=== PATIENT | female | born 1985 | race Caucasian/White ===

== ENCOUNTER 2016-05-17 15:28 | Emergency (ER) | payer MEDICAID ==
[~2016-05-17] VITALS: Wt 52.7 kg
[2016-05-17] MEDS ORDERED: ACETAMINOPHEN/CODEINE #3 TAB PO ONE (17:30)
[2016-05-17] MEDS ORDERED: IBUPROFEN 200 MG TAB PO ONE (17:30)
--- NOTE | 2016-05-17 18:02 | RADRPT ---
PROCEDURE: Chest Radiograph. CLINICAL INDICATION: Chest pain TECHNIQUE: Single frontal chest radiograph. COMPARISON: None available FINDINGS: The cardiomediastinal silhouette is within normal limits. There is a vague area of increased densit y in the right upper lung zone which may represent focal infiltrate or artifact . The lungs are oth erwise clear. No lobar infiltrate is identified. There is no pleural effusion. The bones are in tact. IMPRESSION: 1. Vague area of increased density in the right upper lung zone is nonspecific and may represent fo camille infiltrate. Recommend follow-up to resolution versus CT chest as clinically indicated. 2. Otherwise unremarkable chest radiograph. RPTAT: [facility] .Castro Rivera MD, MD Date Time Electronically viewed and signed by .Castro Rivera MD, on 05/17/2016 18:02 .B/
[2016-05-17] MEDS ORDERED: ACET1TAB40 PO (18:06)
[2016-05-17] MEDS ORDERED: AZIT250T94 PO (18:06)
[2016-05-17] MEDS ORDERED: AMOX1TAB10 PO (18:06)
[2016-05-17] MEDS ORDERED: IBUP-1542 PO (18:06)
--- NOTE | 2016-05-17 18:10 | ERD ---
ER Documentation Chief Complaint Date/Time DATE: 05/17/16 TIME: 18:08 Chief Complaint COUGH AND CONGESTION FOR THE PAST FEW DAYS. INTERMITTENT FEVERS HPI This 3-year-old female presents with cough congestion and low-grade fever for last 3 days. Over the last 2 days she has developed some pain in the right upper chest wall area. She denies shortness breath, vomiting, abdominal pain, diarrhea, neck stiffness, rashes. ROS All systems reviewed and are negative except as per history of present illness. Medications Home Meds Active Scripts Acetaminophen with Codeine (Acetaminophen-Cod #3 Tablet) 1 Each Tablet, 1 TAB PO Q6H Y for PAIN, #12 TAB Prov:NIKI SINGH MD 05/17/16 Ibuprofen* (Motrin*) 600 Mg Tab, 400 MG PO Q6, #15 TAB Prov:NIKI SINGH MD 05/17/16 Azithromycin* (Zithromax*) 250 Mg Tablet, 250 MG PO .ZPACK DIRECTED, #6 TAB TAKE 500 MG (2 TABS) THE FIRST DAY THEN 250 MG (1 TAB) DAYS 2-5 Prov:NIKI SINGH MD 05/17/16 Amoxicillin/Potassium Clav (Amox-Clav 875-125 mg Tablet) 875-125 mg Tab, 1 TAB PO BID for 7 Days, #14 TAB Prov:NIKI SINGH MD 05/17/16 Allergies Allergies: Coded Allergies: No Known Allergy (Unverified , 02/12/15) PMhx/Soc Medical and Surgical Hx: pt denies Medical Hx, pt denies Surgical Hx History of Surgery: No Anesthesia Reaction: No Hx Neurological Disorder: No Hx Respiratory Disorders: Yes Hx Cardiac Disorders: No Hx Miscellaneous Medical Probl: No Hx Alcohol Use: No Hx Substance Use: No Hx Tobacco Use: No Smoking Status: Never smoker Physical Exam Vitals Vital Signs Date Time Temp Pulse Resp B/P Pulse Ox O2 Delivery O2 Flow Rate FiO2 05/17/16 15:30 100.1 112 21 122/60 99 Physical Exam Const: [] Alert, [id number]. Head: Atraumatic Eyes: Normal Conjunctiva ENT: Normal External Ears, Nose and Mouth. Neck: Full range of motion..~ No meningismus. Resp: Clear to auscultation bilaterally. Mild tenderness in the right upper anterior chest wall. Cardio: Regular rate and rhythm, no murmurs Abd: Soft, non tender, non distended. Normal bowel sounds Skin: No petechiae or rashes Back: No midline or flank tenderness Ext: No cyanosis, or edema Neur: Awake and alert Psych: Normal Mood and Affect Results 24 hrs Current Medications Medications (Trade) Dose Ordered Sig/Javier Route PRN Reason Start Time Stop Time Status Last Admin Dose Admin Ibuprofen (Motrin) 400 mg ONCE ONCE PO 05/17/16 17:30 05/17/16 17:31 DC 05/17/16 17:12 Acetaminophen/ Codeine Phosphate (Tylenol No.3) 1 tab ONCE ONCE PO 05/17/16 17:30 05/17/16 17:31 DC 05/17/16 17:12 Ceftriaxone Sodium (Rocephin) 1 gm ONCE ONCE IM 05/17/16 18:30 05/17/16 18:31 Lidocaine (Xylocaine 1% (Mdv) 20 ml) 20 ml ONCE ONCE SC 05/17/16 18:30 05/17/16 18:31 Procedures/MDM Chest X-ray 1V Interpreted by me: Soft Tissue: No acute abnormalities Bones: No acute abnormalities Mediastinum/Cardiac Silhouette/Lungs: There is a slight density in the right upper lobe area consistent with infiltrate. Impression-likely right upper lobe infiltrate. Patient was given ibuprofen and Tylenol 3 for pain. Patient is given Rocephin 1 g IM. Patient will be treated for pneumonia with Zithromax and Augmentin and ibuprofen and Tylenol No. 3 at home. Patient signs and symptoms are not consistent with pulmonary embolism, aortic disease, acute coronary syndrome, respiratory distress, acute abdomen. She should return for new or worsening symptoms with primary doctor this week. Departure Diagnosis: Primary Impression: Pneumonia Pneumonia type: due to unspecified organism Laterality: right Lung location : upper lobe of lung Qualified Code: J18.9 - Pneumonia of right upper lobe due to infectious organism Condition: Stable Patient Instructions: Chest Pain, Noncardiac , Pneumonia (Adult) Additional Instructions: TIENE POQUITO PNEUMONIA DONDE NELL DOLOR. Cheque otro vez con antonio doctor primario en el proximo black or regresa para mas o nueva simptomas. NIKI SINGH MD May 17, 2016 18:09
[2016-05-17] MEDS ORDERED: LIDOCAINE 1% (MDV) 20 ML INJ SC ONE (18:30)
[2016-05-17] MEDS ORDERED: CEFTRIAXONE 1 GM INJ IM ONE (18:30)
[2016-05-17 18:35] VITALS: BP 100/55; PULSE 89; RESP 18; TEMP 99.8
== END 2016-05-17 18:35 | disposition home or self-care (01) ==
LOC: FTE 15:28
DX: J18.9 Pneumonia, unspecified organism (principal)
CPT/HCPCS: 71010; 96372; J0696; Z7502; Z7610

== ENCOUNTER 2017-10-03 22:10 | Emergency (ER) | END 2017-10-04 01:59 | disposition home or self-care (01) ==